=== PATIENT | male | born 1970 | race African-American/Black ===

== ENCOUNTER → 2021-05-30 15:02 | Outpatient (BNVA) | payer MEDICAID, SELFPAY | PROVIDERS: PCP Student in an Organized Health Care Education/Training Program; Visit Provider Internal Medicine | DX: B19.20 Unspecified viral hepatitis C without hepatic coma (principal) | CPT/HCPCS: 99202 ==

== ENCOUNTER → 2021-06-18 10:15 | Outpatient (BNVA) | payer MEDICAID, SELFPAY | PROVIDERS: PCP Student in an Organized Health Care Education/Training Program; Visit Provider Surgery | DX: K64.4 Residual hemorrhoidal skin tags (principal) | CPT/HCPCS: 99212 ==

== ENCOUNTER 2021-10-24 06:48 | Day surgery (SDC) | payer MEDICAID, SELFPAY ==
--- NOTE | 2021-07-07 08:29 | HO.ANESPROP2 ---
HPI - Anesthesia Eval Consult details Narrative: 50yo M for EUA, Hemorrhoidectomy PMFSH Active Problems Active Problems: All Active Problems (Updated 06/30/21 @ 16:20 by Angélica Aranda, MAGO) External hemorrhoids (Acute) Hepatitis C (Acute) Past Medical History Medical History (Updated 06/30/21 @ 16:20 by Angélica Aranda, RN) Arthritis Depression Elevated cholesterol External hemorrhoids Hepatitis C Migraine Surgical History Surgical History (Updated 06/30/21 @ 16:20 by Angélica Aranda RN) History of abdominal surgery History of incision and drainage Social History Social History Alcohol intake: never Patient Tobacco Use Status: Current everyday Tobacco user Meds Allergies Allergy/AdvReac Type Severity Reaction Status Date / Time No Known Allergies Allergy Verified 06/30/21 16:20 [No Known Allergies*] Home Medications Medication Instructions Recorded Confirmed Last Taken Type albuterol sulfate 90 mcg/actuation 2 inh INHALATION Q4-6H PRN 06/18/21 07/01/21 Unknown History breath activated powder inhaler,sensor (Proair Digihaler) diphenhydramine HCl 25 mg tablet 25 mg PO BEDTIME 06/18/21 07/01/21 Unknown History (Benadryl Allergy) hydrocortisone 2.5 % topical cream 1 appl NE BID-QID PRN 06/18/21 Unknown History with perineal applicator (Anusol-HC) lisinopril 20 1 tab PO DAILY 06/18/21 07/01/21 Unknown History mg-hydrochlorothiazide 25 mg tablet meloxicam 15 mg tablet 15 mg PO DAILY 06/18/21 07/01/21 Unknown History prednisone 20 mg tablet 20 mg PO DAILY 06/18/21 07/01/21 Unknown History quetiapine 100 mg tablet (Seroquel) 100 mg PO DAILY 06/18/21 07/01/21 Unknown History simvastatin 10 mg tablet 10 mg PO DAILY 06/18/21 07/01/21 Unknown History Exam Exam Date and Time: July 07, [id number] Pertinent Lab Results Pertinent Lab Results: Labs from outside facility WNL (LFT WNL, HCV not detected, Chemistries WNL) Assessment and Plan Assessment Anesthesia Assessment: Chart Reviewed
--- NOTE | 2021-07-08 07:37 | PC.NURSE ---
placed call to patient at 0615, no answer voicemail left. Dr. Pinzon and Katherin Samaniego notified patient has not arrived.
--- NOTE | 2021-10-23 12:18 | HO.ANESPROP2 ---
Documented by User: Leslie Hoyos NP 10/23/21 12:21 HPI - Anesthesia Eval Consult details Narrative: 51yo M for EUA, Hemorrhoidectomy PMFSH Active Problems Active Problems: All Active Problems (Updated 06/30/21 @ 16:20 by Angélica Aranda, RN) External hemorrhoids (Acute) Hepatitis C (Acute) Past Medical History Medical History (Updated 06/30/21 @ 16:20 by Angélica Aranda, RN) Arthritis Depression Elevated cholesterol External hemorrhoids Hepatitis C Migraine Surgical History Surgical History (Updated 06/30/21 @ 16:20 by Angélica Aranda, RN) History of abdominal surgery History of incision and drainage Social History Social History Alcohol intake: never Patient Tobacco Use Status: Current everyday Tobacco user Use of substances other than those prescribed or required for medical reasons: Yes Substance Use Frequency: Daily Are you DNR?: No Advance Directives: No Advance Directives Information Provided: No Meds Allergies Allergy/AdvReac Type Severity Reaction Status Date / Time No Known Allergies Allergy Verified 06/30/21 16:20 [No Known Allergies*] Home Medications Medication Instructions Recorded Confirmed Last Taken Type albuterol sulfate 90 mcg/actuation 2 inh INHALATION Q4-6H PRN 06/18/21 07/01/21 Unknown History breath activated powder inhaler,sensor (Proair Digihaler) diphenhydramine HCl 25 mg tablet 25 mg PO BEDTIME 06/18/21 07/01/21 Unknown History (Benadryl Allergy) hydrocortisone 2.5 % topical cream 1 appl [place] BID-QID PRN 06/18/21 Unknown History with perineal applicator (Anusol-HC) lisinopril 20 1 tab PO DAILY 06/18/21 07/01/21 Unknown History mg-hydrochlorothiazide 25 mg tablet meloxicam 15 mg tablet 15 mg PO DAILY 06/18/21 07/01/21 Unknown History prednisone 20 mg tablet 20 mg PO DAILY 06/18/21 07/01/21 Unknown History quetiapine 100 mg tablet (Seroquel) 100 mg PO DAILY 06/18/21 07/01/21 Unknown History simvastatin 10 mg tablet 10 mg PO DAILY 06/18/21 07/01/21 Unknown History Exam Exam Date and Time: October 23, 2021 1218 Assessment and Plan Assessment Anesthesia Assessment: Chart Reviewed Documented by User: Bhavik Duke 10/24/21 08:33 PMF Past Medical History Medical History (Updated 06/30/21 @ 16:20 by Angélica Aranda, MAGO) Arthritis Depression Elevated cholesterol External hemorrhoids Hepatitis C Migraine Functional capacity: independent ambulation Family History Family history of problems with anesthesia: No Surgical History Surgical History (Updated 06/30/21 @ 16:20 by Angélica Aranda RN) History of abdominal surgery History of incision and drainage History of Problems with Anesthesia: No Social History Social History Alcohol intake: never Patient Tobacco Use Status: Current everyday Tobacco user Use of substances other than those prescribed or required for medical reasons: Yes Substance Use Frequency: Daily Are you DNR?: No Advance Directives: No Advance Directives Information Provided: No Meds Allergies Allergy/AdvReac Type Severity Reaction Status Date / Time No Known Allergies Allergy Verified 06/30/21 16:20 [No Known Allergies*] Home Medications Medication Instructions Recorded Confirmed Last Taken Type albuterol sulfate 90 mcg/actuation 2 inh INHALATION Q4-6H PRN 06/18/21 07/01/21 Unknown History breath activated powder inhaler,sensor (Proair Digihaler) diphenhydramine HCl 25 mg tablet 25 mg PO BEDTIME 06/18/21 07/01/21 Unknown History (Benadryl Allergy) hydrocortisone 2.5 % topical cream 1 appl [place] BID-QID PRN 06/18/21 Unknown History with perineal applicator (Anusol-HC) lisinopril 20 1 tab PO DAILY 06/18/21 07/01/21 Unknown History mg-hydrochlorothiazide 25 mg tablet meloxicam 15 mg tablet 15 mg PO DAILY 06/18/21 07/01/21 Unknown History prednisone 20 mg tablet 20 mg PO DAILY 06/18/21 07/01/21 Unknown History quetiapine 100 mg tablet (Seroquel) 100 mg PO DAILY 06/18/21 07/01/21 Unknown History simvastatin 10 mg tablet 10 mg PO DAILY 06/18/21 07/01/21 Unknown History Exam Airway Mallampati Class: IV TM Dist: >3cm Neck ROM: Full Loose/Missing/Broken Teeth: Yes Assessment and Plan Final Anesthetic Review Family History of Problems with Anesthesia: No History of Problems with Anesthesia: No NPO: Yes ASA Class: II Final Preanesthetic Review: Meds/Osbaldogs Chart Reviewed Patient Risk: Intermediate Procedure Risk: Intermediate Anesthetic Plan Anesthetic Plan: GA Disposition: Standard PACU
[2021-10-24] VITALS (16 sets, daily range): BP systolic 99–133; BP diastolic 38–93; PULSE 80–889; RESP 12–20; TEMP 36.2; O2SAT 95–99; BMI 33.4
--- NOTE | 2021-10-24 07:25 | MHC.SHP ---
Pre-Procedural Eval Section A Date of Service: 10/24/21 Section B Chief Complaint: External hemorrhoids Details of Present Illness: has had painful hemorrhoids Relevant Family History (Specify if Yes): No Relevant Social History: None Present Medications: see Short Stay Collaborative assessment Medical History: Significant History (hep C) History of Previous Operations: Relevant previous surgery/procedure and date(s) (sphincterotomy and hemorrhoidectomy) Allergies: Allergies Allergy/AdvReac Type Severity Reaction Status Date / Time No Known Allergies Allergy Verified 06/30/21 16:20 [No Known Allergies*] Review of Systems Sugical H&P ROS: Negative: Constitution, Cardiovascular, Respiratory, Neurological, Psychiatric, Hem-Onc, Allergic/Immunologic, Gastrointestinal, Genitourinary, Musculoskeletal, Integumentary, Endocrine and Eyes/Ears/Nose/Throat Exam Surgical H&P Exam: Normal: HEENT, Normal: Heart, Normal: Lungs, Normal: Extremities, Normal: Abdomen, Normal: Skin and Normal: Neurological Exam Comment: extenal hemorrhoids, moderately sized Plan Diagnosis/Plan: Unchanged I have reviewed the history and physical and performed a pertinent physical examination on my patient. No changes have occurred unless specified.
[2021-10-24] MEDS: Albuterol/Iprat 2.5/0.5MG 3 ML AMPUL.NEB INHALE (07:39)
[2021-10-24] MEDS: Lactated Ringers 1,000 ML 100 ML IVCONT (07:58)
--- NOTE | 2021-10-24 09:20 | W.PM.OPN ---
Operative Note Operative Note Date of Service: 10/24/21 Narrative: preop diagnosis: hemorrhoids with pain and prolapse Postop diagnosis: Internal and external hemorrhoidal columns, with pain and prolapse procedure: Exam under anesthesia, hemorrhoidectomy x2 columns Surgeon: Mateo Pinzon MD The patient is a 51-year-old male with complaints of pain and discomfort with his hemorrhoids. He was noted to have external hemorrhoids in the office. In view of discomfort, wanted proceed with hemorrhoidectomy. He understood the technique of ME. He was aware of the risks, benefits, and alternatives Was brought to the operating room placed in prone alexsandra-knife position under general anesthesia via endotracheal tube. The buttocks were retracted with wide tape laterally. The perianal area was prepped and draped in the usual sterile fashion. A surgical time-out was done. The patient received Cefotan 2 g IV preoperatively Examination of the anal orifice revealed overall columns on the left and right side. I inserted the Michael Pelayo retractor and examined the anal canal circumferentially. A moderate-sized hemorrhoidal column, mix of internal external was seen on the right anterior as well as on the left lateral. I applied a Capone grasper at the hemorrhoidal column on the right side. I made a ddsvay-kn-uhvmd stitch at its pedicle proximal to the dentate line 3-0 chromic 3-0.. I made an incision around this hemorrhoidal column to the perianal skin using A blade 15. I proceeded to excise this hemorrhoidal column along this incision above the plane of sphincters using scissors. I closed the incision with the running chromic 3-0 stitch with additional hemostatic [id number]-[id number] sutures being placed for oozing areas . Proceeded to do the same procedure on the hemorrhoidal column the left. Again this was retracted the Capoen grasper. I made a nnjdow-hv-xybnc stitch at the pedicle and made incision on this hemorrhoidal column to the perianal skin with a blade 15. I excised this hemorrhoidal column above the plane of sphincters using scissors. I closed the incision with a running chromic 3-0 stitch additional hemostatic sutures being placed . Once hemostasis was ensured, proceeded to examine the rest of the anal canal. There were no other lesions seen. The anal canal was patent . I infiltrated the perianal area with Marcaine 0.5% for postop analgesia and the procedure was completed . The patient tolerated procedure well. There were no complication noted. Initial Andfinal counts of sponges and instruments were correct. Estimated blood loss about 20 cc . The patient was extubated without difficulty and transferred to the recovery room with stable vital signs.
[2021-10-24] MEDS: fentaNYL citrate/PF 100 MCG/2 ML VIAL 25 MCG IVPUSH ×4 (09:46→10:08)
[2021-10-24] MEDS: oxyCODONE HCl Immed Release 5 MG TABLET PO ×2 (09:54→09:55)
== END 2021-10-24 11:50 | disposition home or self-care (01) ==
PROVIDERS: PCP Student in an Organized Health Care Education/Training Program; Visit Provider Surgery
PROC: (CPT 46260; principal; 2021-10-24 08:20)
DX: K64.8 Other hemorrhoids (principal); K64.4 Residual hemorrhoidal skin tags; K62.89 Other specified diseases of anus and rectum; B19.20 Unspecified viral hepatitis C without hepatic coma
CPT/HCPCS: 46260; 88304; 94640; J2250; J3010

== ENCOUNTER 2024-01-30 19:22 | Emergency (ER) | payer MEDICAID, SELFPAY ==
[2024-01-30 19:28] VITALS: BP 152/88; PULSE 89; O2SAT 96
[2024-01-30 19:30] VITALS: BP 135/84; PULSE 85; RESP 20; TEMP 37.3; O2SAT 97; BMI 35.5
--- NOTE | 2024-01-30 20:12 | ED_ITS ---
HPI - General Adult General Chief complaint: Abdominal Pain Stated complaint: abd pain Time Seen by Provider: 01/30/24 19:37 Source: patient Mode of arrival: ambulatory Limitations: no limitations History of Present Illness HPI narrative: 53-year-old male hypertension and high cholesterol presents to ED for chronic right upper quadrant pain that resolved on its own. Patient states he has had this issue for a long time evaluated by primary care provider and had normal ultrasound and labs in the past. Patient does not want further evaluation in the ED. patient states no abdominal pain, nausea, vomiting, fever, chills, bloody urine, rectal bleeding, flank pain, decreased in appetite or any concerning symptoms. Related Data Home Medications Medication Instructions Recorded Confirmed albuterol sulfate 90 mcg/actuation 2 inh inhalation Q4-6H PRN Wheezing 06/18/21 07/01/21 breath activated powder inhaler,sensor (Proair Digihaler) diphenhydramine HCl 25 mg tablet 25 mg PO BEDTIME 06/18/21 07/01/21 (Benadryl Allergy) hydrocortisone 2.5 % topical cream 1 appl [place] BID-QID PRN Rectal 06/18/21 with perineal applicator Discomfort (Anusol-HC) lisinopril 20 1 tab PO DAILY 06/18/21 07/01/21 mg-hydrochlorothiazide 25 mg tablet meloxicam 15 mg tablet 15 mg PO DAILY 06/18/21 07/01/21 prednisone 20 mg tablet 20 mg PO DAILY 06/18/21 07/01/21 quetiapine 100 mg tablet (Seroquel) 100 mg PO DAILY 06/18/21 07/01/21 simvastatin 10 mg tablet 10 mg PO DAILY 06/18/21 07/01/21 Previous Rx's Medication Instructions Recorded docusate sodium 100 mg capsule 100 mg PO BID #60 caps 10/24/21 (Colace) ibuprofen 600 mg tablet 600 mg PO Q6H PRN pain #30 tabs 10/24/21 oxycodone-acetaminophen 5 mg-325 1 tab PO Q4-6H PRN pain severe #30 10/24/21 mg tablet (Percocet) tabs Allergies Allergy/AdvReac Type Severity Reaction Status Date / Time No Known Allergies Allergy Verified 06/30/21 16:20 [No Known Allergies*] Review of Systems Review of Systems: Resolved abdominal pain Yes all other systems are reviewed and are negative PMFSH Past Medical History Medical History (Updated 01/30/24 @ 20:25 by FRANDY Tello) Arthritis Migraine Depression Elevated cholesterol External hemorrhoids Hepatitis C Surgical History (Updated 06/30/21 @ 16:20 by Angélica Aranda RN) History of incision and drainage History of abdominal surgery Social History Social History Alcohol intake: never Patient Tobacco Use Status: Current everyday Tobacco user Advance Directives: No Advance Directives Information Provided: No Physical Exam ED Vital Signs: Vital Signs - 24 hr 01/30/24 19:30 01/30/24 20:42 Temperature 99.2 F 99.0 F Pulse Rate 85 87 Respiratory Rate 20 18 Blood Pressure 135/84 135/84 Pulse Oximetry 97 100 Oxygen Delivery Method Room Air Room Air BMI result Body Mass Index 35.5 Const General: cooperative, healthy appearing, comfortable, no acute distress, well developed, alert, awake and Physically active Orientation/consciousness: oriented to person, oriented to place, oriented to time and patient oriented x3 HENMT Head: Yes normal to inspection, Yes No palpable skull fracture present, Yes normocephalic and Yes atraumatic Eyes General: appearance normal, both eyes and all related structures Neck Neck: Yes normal visual inspection, Yes full ROM, Yes no lymphadenopathy, Yes no meningeal signs, Yes trachea midline, Yes supple, No anterior neck swelling and No tender Chest Chest palpation & inspection: normal inspection of the chest and normal palpation of entire chest wall Resp Effort & Inspection: normal respiratory effort and able to speak in complete sentences Auscultation: clear to auscultation bilaterally Cardio Jugular venous distension: no JVD GI Inspection: Yes normal to inspection and No abdominal wall ecchymosis Palpation (GI): Soft to palpation, not firm, nontender, no guarding and not rigid General: No CVA tenderness and Yes no CVA tenderness Back/Spine/Pelvis Back: no CVA tenderness, No CVA tenderness and No back tenderness Skin General skin exam: no rashes or lesions noted, elasticity normal and turgor normal Neuro General: oriented to person, oriented to place, oriented to time, patient oriented x3, gait normal, tone normal, moves all extremities, Normal light touch and pain sensation, no meningeal signs, no focal motor deficits, CN's II-XI intact bilaterally and normal sensation to monofilament Extrem General: Yes normal to inspection, Yes full ROM and Yes capillary refill normal Psych Appearance: grossly normal, well kempt and not disheveled Medical Decision Making Medical Decision Making MDM Narrative: 53-year-old male history of hypertension cholesterol presents to ED four resolved right upper quadrant pain. Patient states this is chronic not new. Patient does not want any further medical evaluation. Patient's explain evaluation for possibility to rule out pancreatitis, cholecystitis or any liver issues. Patient explained of . Patient still would like to be discharged. Presently patient is asymptomatic. Patient under police custody. Patient may reynoso oriented x3. Patient wants to be discharged. Differential Diagnosis Differential Diagnoses: The differential diagnosis associated with the presentation includes (Gallstones, pancreatitis, liver issues) Admission/Observation Consideration of admission/observation: Escalation of care including admission/observation considered Independent Historian Clinical information obtained from an independent historian. History obtained from or confirmed by: Other (Patient) External Record Review External record reviewed: Other (prior visits) Prescription Management I considered prescription management with: Pain Medication Social Determinants Patient?s care significantly limited by Social Determinants of Health including: Other Social Determinant of Health (Police custody) Discharge Plan Discharge Clinical Impression: Abdominal pain Patient Disposition: Home, Self-Care Instructions: Abdominal Pain (ED) Additional Instructions: Return to the ED immediately for any abdominal pain, nausea, vomiting, flank pain, fever, chills, dysuria, hematuria, weakness, dizziness, back pain, or any other concerning symptoms. Recommend follow up with PCP. Prescriptions: No Action oxycodone-acetaminophen [Percocet] 5-325 mg tablet 1 tab PO Q4-6H PRN (Reason: pain severe) Qty: 30 0RF docusate sodium [Colace] 100 mg capsule 100 mg PO BID Qty: 60 2RF ibuprofen 600 mg tablet 600 mg PO Q6H PRN (Reason: pain) Qty: 30 0RF quetiapine [Seroquel] 100 mg tablet 100 mg PO DAILY diphenhydramine HCl [Benadryl Allergy] 25 mg tablet 25 mg PO BEDTIME meloxicam 15 mg tablet 15 mg PO DAILY lisinopril-hydrochlorothiazide 20-25 mg tablet 1 tab PO DAILY simvastatin 10 mg tablet 10 mg PO DAILY Proair Digihaler 90 mcg/actuation aero powdr breath act w/sensor 2 inh inhalation Q4-6H PRN (Reason: Wheezing) prednisone 20 mg tablet 20 mg PO DAILY hydrocortisone [Anusol-HC] 2.5 % cream with perineal applicator 1 appl W[place] BID-QID PRN (Reason: Rectal Discomfort) Interventions: ED Discharge Assessment Last Done: 01/30/24 20:42 Discharge Date/Time: 01/30/24 20:44 Print Language: Fijian
[2024-01-30 20:42] VITALS: BP 135/84; PULSE 87; RESP 18; TEMP 37.2; O2SAT 100
== END 2024-01-30 20:44 | disposition home or self-care (01) ==
PROVIDERS: Emergency Provider Internal Medicine
DX: R10.11 Right upper quadrant pain (principal); I10 Essential (primary) hypertension
CPT/HCPCS: 99282; 99284

== ENCOUNTER 2024-11-28 14:21 | Outpatient (AMB) | payer MEDICAID, SELFPAY ==
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
[2024-11-28 14:46] VITALS: BP 120/75; PULSE 79; BMI 35.0
== END 2024-11-28 14:52 | disposition home or self-care (01) ==
PROVIDERS: PCP Student in an Organized Health Care Education/Training Program; Visit Provider Surgery
DX: D17.1 Benign lipomatous neoplasm of skin and subcutaneous tissue of trunk (principal)
CPT/HCPCS: 99204

== ENCOUNTER → 2024-11-28 14:21 | Outpatient (BNVA) | payer MEDICAID, SELFPAY | PROVIDERS: PCP Student in an Organized Health Care Education/Training Program; Visit Provider Surgery | DX: D17.1 Benign lipomatous neoplasm of skin and subcutaneous tissue of trunk (principal) | CPT/HCPCS: 99202 ==

== ENCOUNTER 2025-01-10 09:04 | Day surgery (SDC) | payer MEDICAID, SELFPAY ==
[2025-01-08 13:24] VITALS: BMI 35.0
--- OUTSIDE RECORDS SUMMARY | 2025-01-09 14:08 | XMS_ITS | Encounter Summary ---
Author Organization [employer] Address [address] [place] [address] Care Team Providers Care Ultrasound Technologist Sonographer Name Role Phone Saritha Ramirez MD Primary Care Provider [phone] Reason for Visit * Reason Onset Date Comments Walk-In 12/26/2024 Encounter Details Date Type Department Care Team ([facility] st Contact Info) Description 12/26/2024 Telephone [facility] [address] [place] [address] Saritha Ramirez MD [address] [place] [address] Walk-In Social History Tobacco Use Types Packs/Day Years Used Date Smoking Tobacco: Every Day Cigarettes Passive Smoke Exposure: Never Smokeless Tobacco: Never Alcohol Use Standard Drinks/Week Comments Never 0 (1 standard drink = 0.6 oz pur e alcohol) Sex and Gender Information Value Date Recorded Sex Assigned at Male 09/14/2022 10:30 AM EDT Legal Sex Male 10:30 AM EDT Gender Identity Choose not to disclose 10:30 AM EDT Sexual Orientation Choose not to disclose 2021 10:30 AM EDT documented as of this encounter Miscellaneous Notes * Telephone Encounter - Ne Palencia RN - 12/26/2024 4:28 PM EST Patient was not in waiting room when called back to be assessed. TC to patient, and instructed him to go to [facility] to be assessed. * Telephone Encounter - Philip Wood - 12/26/2024 3:35 PM EST Pt walked in stating he had a slip and fall at home yesterday on ice. Pt mentions he's having pain on right side of body/head. Pt is here sitting in waiting area. documented in this encounter Plan of Treatment Not on file documented as of this encounter Visit Diagnoses Not on filedocumented in this encounter Care Teams Ultrasound Technologist Sonographer Relationship Specialty Start Date End Date Saritha Ramirez MD [address] [place] [id number] PCP - General Family Medicine 08/31/16 documented as of this encounter
--- OUTSIDE RECORDS SUMMARY | 2025-01-09 14:08 | XMS_ITS | Clinical Summary ---
Author Organization [employer] Address [address] [place] [address] [address] [place] [address] Care Team Providers Care Hydraulic Plumber Name Role Phone Saritha Ramirez MD Primary Care Provider [phone] Allergies No known active allergies Medications ALPRAZolam (Xanax) 2 MG tablet TAKE 1/2 TABLET BY MOUTH EVERY MORNING AND EVERY EVENING AND TAKE 1 TABLET BY MOUTH AT BEDTIME 01/17/2023 Active divalproex (Depakote) 500 MG EC tablet Take 1,000 mg by mouth 2 times daily. 01/17/2023 Active hydrOXYzine HCl (Atarax) 50 MG tablet Take 50 mg by mouth. 06/03/2016 Active mirtazapine (Remeron) 15 MG tablet TAKE 1 TABLET BY MOUTH AT BEDTIME FOR SLEEP OR MOOD 01/17/2023 Active QUEtiapine (SEROquel) 200 MG tablet Take 200 mg by mouth 2 times daily. 01/17/2023 Active albuterol 108 (90 Base) MCG/ACT inhaler Inhale 2 puffs every 4 (four) hours if needed for wheezing. 18 g 02/18/2023 Active lisinopril-hydro CHLOROthiazide 20-25 MG tabletIndication s:Hypertension, unspecified type TAKE 1 TABLET BY MOUTH IN THE MORNING 90 tablet 3 03/14/2024 03/14/20 25 Active simvastatin (Zocor) 10 MG tabletIndication s:Hypercholester emia TAKE 1 TABLET BY MOUTH EVERY NIGHT 90 tablet 3 03/14/2024 Active Omeprazole 20 MG tablet delayed-release Take 1 tablet (20 mg) by mouth Once per day. 30 tablet 11 10/26/2024 10/26/20 25 Active meloxicam (Mobic) 7.5 MG tablet Take 1 tablet (7.5 mg) by mouth Once per day. 30 tablet 11 10/26/2024 10/26/20 25 Active Active Problems Problem Noted Date Diagnosed Date Bipolar 1 disorder 02/18/2023 Hep C w/o coma, chronic 12/01/2022 Essential hypertension 12/03/2015 Encounters Date Type Department Care Team Description 12/26/2024 Telephone [facility] [address] [place] [address] Saritha Ramirez MD Walk-In 11/06/[address] [facility] [address] [place], [place] [id number] Saritha Ramirez MD 10/26/2024 11:30 AM EST Office Visit [facility] [address] [place] [address] Saritha Ramirez MD Sebaceous cyst (Primary Dx); Gastroesophageal reflux disease without esophagitis 10/26/2024 Travel 10/20/2024 Telephone [facility] [address] [place] [address] Saritha Ramirez MD triage from Last 3 Months Immunizations Name Administration Dates Next Due Influenza injectable quadrivalent preservative f ree 09/04/2016,12/05/2015 Influenza, seasonal, injectable, preservative fr ee 08/26/2016 Pneumococcal Polysaccharide PPSV23 05/09/2017 Tdap 11/12/2016 Social History Tobacco Use Types Packs/Day Years Used Date Smoking Tobacco: Every Day Cigarettes Passive Smoke Exposure: Never Smokeless Tobacco: Never Tobacco Cessation:Ready to Q uit: Not Asked; Counseling Given: Not Answered Alcohol Use Standard Drinks/Week Comments Never 0 (1 standard drink = 0.6 oz pur e alcohol) Sex and Gender Information Value Date Recorded Sex Assigned at Male 09/14/2022 10:30 AM EDT Legal Sex Male 10:30 AM EDT Gender Identity Choose not to disclose 10:30 AM EDT Sexual Orientation Choose not to disclose 2021 10:30 AM EDT Last Filed Vital Signs Vital Sign Reading Time Taken Comments Blood Pressure 129/79 10/26/2024 11:40 AM EST Pulse 64 10/26/2024 11:40 AM EST Temperature 36.7 ??C (98 ??F) 10/26/2024 11:40 AM EST Respiratory Rate 18 10/26/2024 11:40 AM EST Oxygen Saturation 96% 02/18/2023 10:43 AM EDT Inhaled Oxygen Concentration - - Weight 97.1 kg (214 lb) 10/26/2024 11:40 AM EST Height 171.5 cm (5' 7.5 ) 10/26/2024 11:40 AM ES T Body Mass Index 33.02 10/26/2024 11:40 AM EST Plan of Treatment Health Maintenance Due Date Last Done Comments CT Colonography 1971 Colonoscopy 1971 Colorectal Cancer Screening 1971 Depression Screening 1971 FIT DNA/Cologuard 1971 FIT 1971 FOBT 1971 SDOH Screening 1971 Sigmoidoscopy 1971 Alcohol/Substance Use Screening 1983 Hepatitis A Vaccines (1 of 2 - Risk 2-dose series) 1990 Hepatitis B Vaccines (1 of 3 - 19+ 3-dose series) 1990 Pneumococcal Vaccine: 50+ Years (2 of 2 - PCV) 05/09/2018 05/09/2017 Zoster Vaccines (1 of 2) 2021 COVID-19 Vaccine (4 - 2023-2 5 season) 2024 10/22/2021, 04/05/2021, 03/08/2021 Influenza Vaccine (#1) 2024 6, 08/26/2016, 12/05/2015 Tobacco Screening 10/26/2025 10/26/2024 Lipid Panel 04/25/2026 04/25/2021 DTaP/Tdap/Td Vaccines (2 - T d or Tdap) 11/12/2026 11/12/2016 RSV Patients and Patients Aged 60 years or older (1 - 1-dose 75+ series) 2046 HIV Screening Completed 12/09/2022, 04/25/2021 HIB Vaccines Aged Out No longer eligi ble based on patient's age to complete this topic HPV Vaccines Aged Out No longer eligi ble based on patient's age to complete this topic IPV Vaccines Aged Out No longer eligi ble based on patient's age to complete this topic Meningococcal Vaccine Aged Out No penny alex eligible based on patient's age to complete this topic RSV under 20 months Aged Out No longe r eligible based on patient's age to complete this topic Rotavirus Vaccines Aged Out No longer eligible based on patient's age to complete this topic Procedures Procedure Name Priority Date/Time Associated Diagnosis Comments HIV 1 RNA, QN PCR W/RFL COLLEEN (RTI,PI,INTEGRASE) Routine 12/09/2022 10:47 AM EST Hep C w/o coma, chronic (CMS/HCC) LIPID PANEL, STANDARD Routine 04/25/2021 1:08 PM EDT from Last 3 Months or Most Recently Relevant to Health Maintenance Results * HIV-1 RNA, Quantitative, Real-Time PCR with Reflex to Genotype (RTI, PI, Integrase) (12/09/2022 10:47 AM EST) HIV 1 RNA, QN PCR NOT DETECTED copies/mL [facility], HIV 1 RNA, QN PCR NOT DETECTED Log copies/mL [facility], Comment: REFERENCE RANGE: NOT DETECTED copies/mL ?NOT DETECTED ??Log copies/mL This test was performed using Real-Time Polymerase Chain Reaction. Reportable range is 20 to 10,000,000 copies/mL (1.30-7.00 Log copies/mL). 12/09/2022 10:4 7 AM EST 12/09/2022 10:48 AM EST us Re Simon MD LAB BLOOD ORDERABLES Final Resul t [facility] [address], [place] [address] [facility], [address] [place] [address] * (ABNORMAL) LIPID PANEL, STANDARD (04/25/2021 1:08 PM EDT) Chol/HDLC Ratio 3.5 <5.0 (calc) [facility] Cholesterol, Total 150 <200 mg/dL [facility] HDL Cholesterol 43 > OR = 40 mg/dL [facility] LDL Cholesterol 80 mg/dL (calc) [facility] Comment: Reference range: <100 ?? Desirable range <100 mg/dL for primary prevention; ?? <70 mg/dL for patients with CHD or diabetic patients ?? with > or = 2 CHD risk factors. ?? LDL-C is now calculated using the Oliver ?? calculation, which is a validated novel method providing ?? better accuracy than the Friedewald equation in the ?? estimation of LDL-C. ?? Anton AGUILAR et al. YASH. 2013;310(19): 2558-2484 ?? (http://education.Fashion [employer] You/faq/GUO084) Non-HDL Cholesterol 107 <130 mg/dL (calc) [facility] Comment: For patients with diabetes plus 1 major ASCVD risk ?? factor, treating to a non-HDL-C goal of <100 mg/dL ?? (LDL-C of <70 mg/dL) is considered a therapeutic ?? option. Triglycerides 167(H) <150 mg/dL [facility] 04/25/2021 1:08 PM EDT us Saritha aRmirez MD LAB BLOOD ORDERABLES Final Resul t [facility] [address] from Last 3 Months or Most Recently Relevant to Health Maintenance Insurance [facility] C3 Care Teams Hydraulic Plumber Relationship Specialty Start Date End Date Saritha Ramirez MD [address] [place] [id number] PCP - General Family Medicine 08/31/16
[2025-01-10 09:34] VITALS: BMI 35.0
[2025-01-10 09:42] VITALS: BP 112/56; PULSE 95; RESP 16; TEMP 36.8; O2SAT 97
[2025-01-10] MEDS: Lactated Ringers 1,000 ML 100 ML IVCONT (09:53)
--- NOTE | 2025-01-10 10:11 | P.CONAN_ITS ---
HPI - Anesthesia Eval Consult details Narrative: lipoma shoulder removal. PMFSH Active Problems Active Problems: All Active Problems Lipoma (Acute) External hemorrhoids (Acute) Hepatitis C (Acute) Past Medical History Medical History Heartburn HTN (hypertension) Arthritis Migraine Depression Elevated cholesterol External hemorrhoids Hepatitis C Family History Family history of problems with anesthesia: No Surgical History Surgical History Hx of hemorrhoidectomy History of incision and drainage History of abdominal surgery History of Problems with Anesthesia: No Social History Social History Alcohol intake: never Comment: fell onto right side---not seen by md afterwards Patient Tobacco Use Status: Current everyday Tobacco user Tobacco use type: Cigarette Cigarettes Per Day: 11 Use of substances other than those prescribed or required for medical reasons: Yes Substance Use Type Other:: last used this am Substance Use Frequency: Daily Are you DNR?: No Advance Directives: No Advance Directives Information Provided: Yes Meds Allergies Allergy/AdvReac Type Severity Reaction Status Date / Time No Known Allergies Allergy Verified 01/10/25 09:32 [No Known Allergies*] Active Medications: Current Medications Lactated Ringer's (Lr) 1,000 mls @ 100 mls/hr IVCONT .Q10H ALEKSANDR Last Admin: 01/10/25 09:53 Dose: 100 mls/hr Home Medications ?Medication ?Instructions ?Recorded ?Confirmed ?Last Taken ?Type albuterol sulfate 90 mcg/actuation 2 inh inhalation Q4-6H PRN Wheezing 06/18/21 01/10/25 Unknown History breath activated powder inhaler,sensor (Proair Digihaler) lisinopril 20 1 tab PO DAILY 06/18/21 01/10/25 Unknown History mg-hydrochlorothiazide 25 mg tablet quetiapine 100 mg tablet (Seroquel) 100 mg PO DAILY 06/18/21 01/10/25 Unknown History simvastatin 10 mg tablet 10 mg PO DAILY 06/18/21 01/10/25 Unknown History alprazolam 2 mg tablet 2 mg PO BID PRN Anxiety 11/28/24 01/10/25 Unknown History meloxicam 7.5 mg tablet 7.5 mg PO DAILY 11/28/24 01/10/25 Unknown History mirtazapine 15 mg tablet 15 mg PO BEDTIME depressive 11/28/24 01/10/25 Unknown History disorder Exam Height,Weight and Vital Signs: Height 5 ft 6 in Weight 98.5 kg Last Vital Signs Temp 98.3 F 01/10/25 09:42 Pulse 95 01/10/25 09:42 Resp 16 01/10/25 09:42 BP 112/56 L 01/10/25 09:42 Pulse Ox 97 01/10/25 09:42 O2 Del Method Room Air 01/10/25 09:42 Airway Mallampati Class: II TM Dist: >3cm Neck ROM: Full Heart: rrr Lungs: cta Assessment and Plan Assessment Anesthesia Assessment: Anesthesia Plan Discussed Final Anesthetic Review Family History of Problems with Anesthesia: No History of Problems with Anesthesia: No NPO: Yes ASA Class: III Final Preanesthetic Review: No Changes in Pt Med Stat, Meds/Allgs Chart Reviewed , Consent Obtained/Reviewed and Anes Risks/Benef Reviewed Patient Risk: Intermediate Procedure Risk: Low Anesthetic Plan Anesthetic Plan: MAC: Disposition: Standard PACU
--- NOTE | 2025-01-10 10:14 | MHC.SHP ---
Pre-Procedural Eval Section A - 24 Hr Update-Section A only Date of Service: 01/10/25 The patient is an INPATIENT: No Changes since office visit: Yes Patient answered all questions; No Cold of Flu in the past 2 weeks, No New Medical Problems and No Changes in Medication The patient has been examined within 24 hours of the surgical procedure. The History & Physical has been completed within 30 days and I have reviewed it.: No Section B - Complete if H&P > 30 days Chief Complaint: Benign lipomatous neoplasm of skin and subcut Details of Present Illness: No change reported in the symptoms, lipoma right posterior shoulder Relevant Family History (Specify if Yes): No Relevant Social History: None Present Medications: None Medical History: No relevant PMH History of Previous Operations: No relevant previous surgery Allergies: Allergies Allergy/AdvReac Type Severity Reaction Status Date / Time No Known Allergies Allergy Verified 01/10/25 09:32 [No Known Allergies*] Review of Systems Sugical H&P ROS: Negative: Constitution, Cardiovascular, Respiratory, Neurological, Psychiatric, Hem-Onc, Allergic/Immunologic, Gastrointestinal, Genitourinary, Musculoskeletal and Integumentary Exam Surgical H&P Exam: Normal: Heart, Normal: Lungs, Normal: Extremities, Normal: Abdomen and Normal: Skin Plan Diagnosis/Plan: Unchanged I have reviewed the history and physical and performed a pertinent physical examination on my patient. No changes have occurred unless specified. Time Spent With Patient Time: Total time managing care of this patient today ____ minutes.
--- NOTE | 2025-01-10 11:18 | W.PM.OPN ---
Operative Note Operative Note Date of Service: 01/10/25 Narrative: Preoperative diagnosis: Lipoma right posterior shoulder Postoperative diagnosis: Same Procedure: Excision of lipoma right posterior shoulder Surgeon: Jericho Mendieta MD Rug Touch Up Painter: Diamante Dodd PA-C; MEME Valdez Anesthesia: General LMA Indications for procedure: 54-year-old male patient with a large lipoma of the right posterior shoulder causing discomfort. On exam he has a 7 cm mobile soft tissue mass suggestive of a lipoma in the right posterior shoulder Operative findings: 7 cm multiloculated lipoma Specimen: Lipoma right posterior shoulder Estimated blood loss: Less than 2 mL Complications: None Procedure details: Patient was brought to the OR and placed in a supine position. After administering general anesthesia the patient was placed in a left lateral decubitus position. The skin was prepped with ChloraPrep and draped in a sterile fashion. A surgical time-out was called the consent confirmed. Patient received preoperative antibiotics and Venodyne boots were in place. Local anesthesia with 0.5% Sensorcaine and 1% lidocaine was infiltrated over the lipoma. Incision was then made with a scalpel carried out through subcutaneous tissue up to the lipoma. Electrocautery was then used to dissect the lipoma from the surrounding subcutaneous tissue. Hemostasis was assured using electrocautery. Specimens removed and sent to pathology for further examination. Wounds were irrigated with saline solution and suctioned dry. Deep subcutaneous tissue and dermis were reapproximated using interrupted 3-0 Polysorb sutures. Skin was closed using a running subcuticular 4-0 Polysorb suture. Sterile dressings consisting of Steri-Strips, 4 x 4 gauze and Tegaderm were then applied. The patient tolerated the procedure well. Sponge, instrument, needle counts reported as correct. The patient was transferred to PACU in stable condition.
[2025-01-10 11:33] VITALS: BP 137/91; PULSE 89; RESP 16; TEMP 36.3
[2025-01-10 11:38] VITALS: BP 135/83; PULSE 79; RESP 16; O2SAT 98
[2025-01-10 11:43] VITALS: BP 130/72; PULSE 81; RESP 16; O2SAT 98
[2025-01-10 11:48] VITALS: BP 132/83; PULSE 76; RESP 16; O2SAT 96
[2025-01-10 12:03] VITALS: BP 130/88; PULSE 78; RESP 16; TEMP 36.5; O2SAT 98
== END 2025-01-10 12:26 | disposition home or self-care (01) ==
PROVIDERS: PCP Student in an Organized Health Care Education/Training Program; Visit Provider Surgery
PROC: (CPT 23071; principal; 2025-01-10 11:20)
DX: D17.21 Benign lipomatous neoplasm of skin and subcutaneous tissue of right arm (principal); E78.00 Pure hypercholesterolemia, unspecified; B19.20 Unspecified viral hepatitis C without hepatic coma; G43.909 Migraine, unspecified, not intractable, without status migrainosus; M19.90 Unspecified osteoarthritis, unspecified site; F32.A Depression, unspecified; K64.4 Residual hemorrhoidal skin tags; Z79.899 Other long term (current) drug therapy; Z98.890 Other specified postprocedural states; F17.210 Nicotine dependence, cigarettes, uncomplicated
CPT/HCPCS: 23071; 88304; J0690; J2003; J2704; J3010

== ENCOUNTER → 2025-01-10 09:04 | Outpatient (BNV) | payer MEDICAID, SELFPAY | PROVIDERS: PCP Student in an Organized Health Care Education/Training Program; Visit Provider Surgery | DX: D17.21 Benign lipomatous neoplasm of skin and subcutaneous tissue of right arm (principal) | CPT/HCPCS: 23071 ==

== ENCOUNTER 2025-01-18 14:49 | Outpatient (AMB) | payer MEDICAID, SELFPAY ==
--- NOTE | 2025-01-18 14:52 | A.OFFVIS_ITS ---
Vital Signs 01/18/25 14:57 Height 5 ft 6 in Weight 217 lb 2.485 oz BMI 35.0 Respiration 16 Pulse 76 Intake Visit Reasons: s/p Excision of lipoma right posterior shoulder Intake Note: Patient is seen in office for follow up visit, post excision of upper back cyst. Pt c/o: denies any concerns Certified Alcohol Drug Counselor Required: Yes Certified Alcohol Drug Counselor Language: Culinary Worker Services: Certified Alcohol Drug Counselor Present Certified Alcohol Drug Counselor Name: Irais SMITH Information Interpreted: non-clinical & clinical Installation Service Representative: Installation Service Representative Present Accompanied by: Self / Same As Patient Allergies No Known Allergies [No Known Allergies*] Allergy (Verified 01/10/25 09:32) HPI Comments Details: Patient returns 1 week following excision of a lipoma of the right upper back. He tolerated the procedure well and feels well with no ongoing pain. He denies any swelling discharge. [facility] Medical History Heartburn HTN (hypertension) Arthritis Migraine Depression Elevated cholesterol External hemorrhoids Hepatitis C Surgical History S/P excision of lipoma (01/10/25) Hx of hemorrhoidectomy History of incision and drainage History of abdominal surgery Social History Alcohol intake: never Comment: fell onto right side---not seen by md afterwards Patient Tobacco Use Status: Current everyday Tobacco user Tobacco use type: Cigarette Cigarettes Per Day: 11 Physical Exam Vital Signs: Last Vital Signs Pulse 76 01/18/25 14:57 Resp 16 01/18/25 14:57 BMI result Body Mass Index 35.0 Const General: no acute distress Nutritional Appearance: well nourished Orientation/consciousness: patient oriented x3 Resp Effort & Inspection: normal respiratory effort Back/Spine/Pelvis Other: Well-healed incision in the right upper back without redness or discharge. No seroma or hematoma is appreciated. Neuro General: patient oriented x3 Assessment & Plan Assessment & Plan (1) Lipoma: Code(s): D17.9 - Benign lipomatous neoplasm, unspecified Category: Medical Qualifiers: Lipoma location: trunk Qualified Code(s): D17.1 - Benign lipomatous neoplasm of skin and subcutaneous tissue of trunk Plan 54-year-old male patient status post excision of a lipoma of the right posterior shoulder. He tolerated the procedure well and his wounds are healing nicely. He should follow up as needed. Coding Level of Care Code Global (36028) Diagnoses Lipoma of torso D17.1 Lipoma location: trunk
[2025-01-18 14:57] VITALS: PULSE 76; RESP 16; BMI 35.0
--- OUTSIDE RECORDS SUMMARY | 2025-01-18 18:19 | XMS_ITS | Encounter Summary ---
Author Organization [employer] Address [address] [place] [address] Care Team Providers Care Commercial Insulator Name Role Phone Saritha Ramirez MD Primary Care Provider [phone] Reason for Visit * Reason Onset Date Comments Walk-In 12/26/2024 Encounter Details Date Type Department Care Team ([facility] st Contact Info) Description 12/26/2024 Telephone [facility] [address] [place] [address] Saritha Ramirez MD [address] [place] [address] Walk-In Social History Tobacco Use Types Packs/Day [...] patient, and instructed him to go to [facility] to be assessed. * Telephone Encounter - [...] on filedocumented in this encounter Care Teams Commercial Insulator Relationship Specialty Start Date End Date Saritha Ramirez MD [address] [place] [id number] PCP - General Family Medicine 08/31/16 documented as of this encounter
--- OUTSIDE RECORDS SUMMARY | 2025-01-18 18:19 | XMS_ITS | Encounter Summary ---
Author Organization [email or web address] [facility] Address [address] [place] [address] [address] [place] [address] Care Team Providers Care Gluing Machine Offbearer Name Role Phone Saritha Ramirez MD Primary Care Provider [phone] Encounter Details Date Type Department Care Team (Late st Contact Info) Description 01/10/2025 Orders Only GENERIC EXTERNAL DATA DEPARTMENT Provider, Generic External Data Social History Tobacco Use Types Packs/Day Years [...] AM EDT documented as of this encounter Plan of Treatment Not on file documented as of this encounter Procedures Procedure Name Priority Date/Time Associated Diagnosis Comments GROSS AND MICROSCOPIC LEVEL 3 Routine 01/10/2025 11:13 AM EST documented in this encounter Results * Gross and Microscopic Level 3 (01/10/2025 11:13 AM EST) 01/10/2025 11:1 3 AM EST 01/10/2025 12:05 PM EST [facility] - 01/11/2025 3:43 PM EST ----- ------- Name: Kaushal Moreno ? Age/Sex: 54/M ? : 1970 Unit#: [id number] ?? Attend Dr: Jericho Mendieta MD ?Re01/10/25 ?Status: DEP SDC ? Location: HO.SSS ?Disch: ? ----- ------- SPEC : [id number] ? RECD: 01/10/25-1205 ? STATUS: ??SOUT ? REQ NUM: [id number] ? KEKE: 01/10/25-1113 ? SUBM DR: Jericho Mendieta MD ? ENTERED: ??01/10/25-1313 ?SP TYPE: Surgical ? OTHR DR: Saritha Ramirez MD ? ORDERED: ??Gross Micro L3 ? Diagnosis ?? Soft tissue, posterior shoulder, excision: ??Mature lobular adipose tissue consistent with ?? lipoma. ?Clinical History Benign lipomatous neoplasm of skin ?Microscopic Description Microscopic sections reviewed. ? Material Received ?? Lipoma posterior shoulder ? Gross Description Received in formalin labeled ?lipoma posterior shoulder, right? is an 8.0 x 5.5 x 3.0 cm smooth and shaggy, brownlee-yellow multilobular portion of adipose tissue with scant attached thin and delicate mcknight-pink fibrous tissue. ??The margins are inked and the specimen is serially sectioned to reveal predominantly homogeneous brownlee-yellow lobular fat with focal congestion. ??No fleshy, hemorrhagic or necrotic foci are identified. ??Training Engineer sections are submitted in cassettes A1-A3. CEDS Copies To: ?? Jericho Mendieta MD ?? [facility] Surgeons ?? [address] ?? [place] [address] ?? [phone] ?? Saritha Ramirez MD ?? [facility] ?? [address] ?? [place] [address] ?? [phone] ? CONTINUED ON NEXT PAGE ----- ------- Name: Kaushal Moreno ? Age/Sex: 54/M ? : 1970 Unit#: [id number] ?? Attend Dr: Jericho Mendieta MD ?Re01/10/25 ?Status: DEP SDC ? Location: HO.SSS ?Disch: ? ----- ------- SPEC : [id number] ? RECD: 01/10/25-1205 ? STATUS: ??SOUT ? REQ NUM: [id number] ? KEKE: 01/10/25-1113 ? SUBM DR: Jericho Mendieta MD ? ENTERED: ??01/10/25-1314 ?SP TYPE: Surgical ? OTHR DR: Saritha Ramirez MD ? ORDERED: ??Gross Micro L3 ? ----- ------- Signed (signature on file) Gemma Silvestre 01/11/25 1543 ? ----- ------- ? END OF REPORT ? us Generic External Data Provider LAB CYTOLOGY RONEL MOSER Final Result [facility] [address] [place] [address] [phone] documented in this encounter Visit Diagnoses Not on filedocumented in this encounter Care Teams Gluing Machine Offbearer Relationship Specialty Start Date End Date Saritha Ramirez MD [address] [place] [phone] PCP - General Family Medicine 08/31/16 documented as of this encounter
--- OUTSIDE RECORDS SUMMARY | 2025-01-18 18:19 | XMS_ITS | Clinical Summary ---
Author Organization [employer] Address [address] [place] [address] [address] [place] [address] Care Team Providers Care Bereavement Coordinator Name Role Phone Saritha Ramirez MD Primary Care Provider [phone] Allergies No known active allergies Medications ALPRAZolam [...] Encounters Date Type Department Care Team Description 01/10/2025 Orders Only GENERIC EXTERNAL DATA DEPARTMENT Provider, Generic External Data 12/26/2024 Telephone [facility] [address] [place] [address] Saritha Ramirez MD Walk-In 11/06/2024 Telephone [place] [employer] [address] [place] [address] Saritha Ramirez MD 10/26/2024 11:30 AM EST Office Visit [facility] [address], [place] [phone] Saritha Ramirez MD Sebaceous cyst (Primary Dx); Gastroesophageal reflux disease without esophagitis 10/26/2024 Travel 10/20/2024 Telephone [facility] [address] [place] [address] Saritha Ramirez MD triage from Last 3 [...] LEVEL 3 Routine 01/10/2025 11:13 AM EST HIV 1 RNA, QN PCR W/RFL COLLEEN (RTI,PI,INTEGRASE) Routine 12/09/2022 10:47 AM EST Hep C w/o coma, chronic (CMS/HCC) LIPID PANEL, STANDARD Routine 04/25/2021 1:08 PM EDT from Last 3 Months or Most Recently Relevant to Health Maintenance Results * Gross and Microscopic Level 3 (01/10/2025 11:13 AM EST) 01/10/2025 11:1 3 AM EST 01/10/2025 12:05 PM EST [facility] - 01/11/2025 3:43 PM EST ----- ------- Name: Kaushal Moreno ? Age/Sex: 54/M ? : 1970 Unit#: [id number] ?? Attend Dr: Jericho Mendieta MD ?Re01/10/25 ?Status: DEP SDC ? Location: HO.SSS ?Disch: ? ----- ------- SPEC : [id number] ? RECD: 01/10/25-5 ? STATUS: ??SOUT ? REQ NUM: [id number] ? KEKE: 01/10/25-1113 ? SUBM DR: Jericho Mendieta MD ? ENTERED: ??01/10/25-4 ?SP TYPE: Surgical ? OTHR DR: Saritha [...] fleshy, hemorrhagic or necrotic foci are identified. ??[employer] sections are submitted in cassettes [id number]. CEDS Copies To: ?? Jericho Mendieta MD ?? [facility] ?? [address] ?? [place] [address] ?? [phone] ?? Saritha Ramirez MD ?? [facility] ?? [address] ?? [place] [address] ?? [phone] ? CONTINUED ON NEXT PAGE ----- ------- Name: Kaushal Moreno ? Age/Sex: 54/M ? : 1970 Unit#: [id number] ?? Attend Dr: Jericho Mendieta MD ?Re01/10/25 ?Status: [facility] [facility] [place] Location: HO.SSS ?Disch: ? ----- ------- SPEC : [id number] ? RECD: 01/10/25-5 ? STATUS: ??SOUT ? REQ NUM: [id number] ? KEKE: 01/10/25-3 ? SUBM DR: Jericho Mendieta MD ? ENTERED: ??01/10/25-1313 ?SP TYPE: Surgical ? OTHR DR: Saritha Ramirez MD ? ORDERED: ??Gross Micro L3 ? ----- ------- Signed (signature on file) Gemma Silvestre 01/11/25 1543 ? ----- ------- ? END OF REPORT ? us Generic External Data Provider LAB CYTOLOGY RONEL MOSER Final Result Performing Organization Address [facility] de Phone Number [facility] [address] [place] [phone] * HIV-1 RNA, Quantitative, Real-Time PCR with Reflex to Genotype (RTI, PI, Integrase) (12/09/2022 10:47 AM EST) [facility] HIV 1 RNA, QN PCR NOT DETECTED copies/mL [facility], HIV 1 RNA, QN PCR NOT DETECTED Log copies/mL [facility], Comment: REFERENCE RANGE: NOT DETECTED copies/mL ?NOT DETECTED ??Log copies/mL This test was performed using Real-Time Polymerase Chain Reaction. Reportable range is 20 to 10,000,000 copies/mL (1.30-7.00 Log copies/mL). 12/09/2022 10:4 7 AM EST 12/09/2022 10:48 AM EST us Re Simon MD LAB BLOOD ORDERABLES Final Resul t Performing Organization Address City/[facility] Co de Phone Number [facility] [address], [place] [address] [employer], [address] [place] [address] * (ABNORMAL) LIPID PANEL, STANDARD (04/25/2021 1:08 PM EDT) [facility] Chol/HDLC Ratio 3.5 <5.0 (calc) [facility] ?? Anton AGUILAR et al. YASH. 2013;310(19): 4305-4125 ?? (http://[email or web address].Tresorit/faq/XDO370) Non-HDL Cholesterol 107 <130 mg/dL (calc) [facility] Comment: For patients with diabetes plus 1 major ASCVD risk ?? factor, treating to a non-HDL-C goal of <100 mg/dL ?? (LDL-C of <70 mg/dL) is considered a therapeutic ?? option. Triglycerides 167(H) <150 mg/dL [facility] 04/25/2021 1:08 PM EDT us Saritha Ramirez MD LAB BLOOD ORDERABLES Final Resul t [facility] [address] from Last 3 Months or Most Recently Relevant to Health Maintenance [place] [id number] [facility] C3 Care Teams Bereavement Coordinator Relationship Specialty Start Date End Date Saritha Ramirez MD [address] [place] [phone] PCP - General Family Medicine 08/31/16
== END 2025-01-18 15:04 | disposition home or self-care (01) ==
PROVIDERS: PCP Student in an Organized Health Care Education/Training Program; Visit Provider Surgery
DX: D17.1 Benign lipomatous neoplasm of skin and subcutaneous tissue of trunk (principal)
CPT/HCPCS: 99024

== ENCOUNTER → 2025-01-18 14:49 | Outpatient (BNVA) | payer MEDICAID, SELFPAY | PROVIDERS: PCP Student in an Organized Health Care Education/Training Program; Visit Provider Surgery | DX: Z09 Encounter for follow-up examination after completed treatment for conditions other than malignant neoplasm (principal); Z87.2 Personal history of diseases of the skin and subcutaneous tissue; Z98.890 Other specified postprocedural states | CPT/HCPCS: 99212 ==